=== PATIENT | female | born 1960 | race Caucasian/White ===

== ENCOUNTER → 2016-09-19 16:13 | Outpatient (CLI) | payer MEDICAID ==
[2014-07-05 13:07] VITALS: BMI 34.8
[~2016-09-19 16:13] MED LIST: ACETAMINOPHEN500 M1 PO; ADIPEX-P37.5 MG PO; AMBIEN10 MG PO; BENADRYL25 MG PO; CELEXA20 MG PO; COLACE100 MG PO; ELIQUIS2.5 MG PO; ESTRACE1 MG PO; GABAPENTIN100 MG PO; GLUCOPHAGE1000 MG PO; GLUCOTROL XL 1010 MG PO; HYDROCODONE-APA1 TAB PO; LYRICA150 MG PO; MS CONTIN30 MG PO; PERCOCET 10/3251 TA1 PO; PRINIVIL20 MG PO; SENOKOT-S TABLE1 TAB PO
== END | disposition home or self-care (01) ==
LOC: D.MAMMO 09:45
DX: Z12.31 Encounter for screening mammogram for malignant neoplasm of breast (principal)

== ENCOUNTER → 2018-07-21 07:59 | Outpatient (CLI) | payer MEDICARE, MEDICAID ==
[2014-07-05 13:07] VITALS: BMI 34.8
== END | disposition home or self-care (01) ==
LOC: D.MRI 07:59
DX: M54.12 Radiculopathy, cervical region (principal)

== ENCOUNTER → 2018-11-25 18:50 | Outpatient (CLI) | payer MEDICARE, MEDICAID ==
[2014-07-05 13:07] VITALS: BMI 34.8
== END | disposition home or self-care (01) ==
LOC: D.MAMMO 11:15
PROVIDERS: ATTEND Family Medicine Adult Medicine
DX: Z12.31 Encounter for screening mammogram for malignant neoplasm of breast (principal)